=== PATIENT | female | born 1990 | race Hispanic/Latino ===

== ENCOUNTER 2018-10-06 13:18 | Emergency (ER) | payer SELFPAY ==
--- NOTE | 2018-10-06 14:08 | EDPHYS ---
Physician Documentation [facility] Name: Suzanne Murguia Age: 28 yrs Sex: Female : 1990 Arrival Date: 10/06/2018 Time: 13:22 Bed 11 Private MD: ED Physician Shun Galvan HPI: 10/06 13:54 This 28 yrs old Female presents to ER via Ambulatory with complaints of Sore jr8 Throat. 13:54 The patient presents with sore throat. The patient describes throat pain as raw. Onset: jr8 The symptoms/episode began/occurred gradually, 3 day(s) ago. Severity of symptoms: At their worst the symptoms were mild, in the emergency department the symptoms are unchanged. Modifying factors: The symptoms are alleviated by nothing, the symptoms are aggravated by swallowing. Associated signs and symptoms: The patient has no apparent associated signs or symptoms. The patient has not experienced similar symptoms in the past. The patient has not recently seen a physician. Patient stated that she has had sore throat on right side of mouth for past three days. Sees redness to right side and noted painful lesion to right inner gum line. Stated that she also feels sore node to right neck region. Denies fevers or any other symptoms . 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 - Social history:: Smoking status: Patient/guardian denies using tobacco. - Ebola Screening: : Patient denies exposure to infectious person Patient denies travel to an Ebola-affected area in the 21 days before illness onset. ROS: 13:54 Eyes: Negative for injury, pain, redness, and discharge, Cardiovascular: Negative for jr8 chest pain, palpitations, and edema, Respiratory: Negative for shortness of breath, cough, wheezing, and pleuritic chest pain, Abdomen/GI: Negative for abdominal pain, nausea, vomiting, diarrhea, and constipation, Back: Negative for injury and pain, MS/Extremity: Negative for injury and deformity, Skin: Negative for injury, rash, and discoloration, Neuro: Negative for headache, weakness, numbness, tingling, and seizure. 13:54 ENT: Positive for Gum pain sore throat, Negative for drainage from ear(s), ear pain, nasal discharge, rhinorrhea, sinus congestion, sinus pain, difficulty swallowing, difficulty handling secretions, hoarseness. 13:54 Neck: Positive for swollen nodes, Negative for pain with movement, pain at rest, stiffness, tenderness, bony tenderness. Exam: 13:54 Constitutional: This is a well developed, well nourished patient who is awake, alert, jr8 and in no acute distress. Eyes: Pupils equal round and reactive to light, extra-ocular motions intact. Lids and lashes normal. Conjunctiva and sclera are non-icteric and not injected. Cornea within normal limits. Periorbital areas with no swelling, redness, or edema. Cardiovascular: Regular rate and rhythm with a normal S1 and S2. No gallops, murmurs, or rubs. Normal PMI, no JVD. No pulse deficits. Respiratory: Lungs have equal breath sounds bilaterally, clear to auscultation and percussion. No rales, rhonchi or wheezes noted. No increased work of breathing, no retractions or nasal flaring. Abdomen/GI: Soft, non-tender, with normal bowel sounds. No distension or tympany. No guarding or rebound. No evidence of tenderness throughout. Back: No spinal tenderness. No costovertebral tenderness. Full range of motion. Skin: Warm, dry with normal turgor. Normal color with no rashes, no lesions, and no evidence of cellulitis. MS/ Extremity: Pulses equal, no cyanosis. Neurovascular intact. Full, normal range of motion. Neuro: Awake and alert, GCS 15, oriented to person, place, time, and situation. Cranial nerves II-XII grossly intact. Motor strength 5/5 in all extremities. Sensory grossly intact. Cerebellar exam normal. Normal gait. 13:54 ENT: Exam is negative for earache, ear discharge, TM abnormalities, nasal discharge, Mouth: Lips: moist, Oral mucosa: pink and intact, moist, noted to have obvious stomatitis, on the gum line behind lower right first bicuspid, small ulcerations noted to right tonsillar fold , Posterior pharynx: Airway: patent, Tonsils: with exudate, right side, Uvula: midline, non-edematous, no erythema, swelling, is not appreciated, erythema, is not appreciated. 13:54 Neck: External neck: is normal, C-spine: appears grossly normal, Thyroid: appears normal, Trachea: is midline with no obvious abnormalities, ROM/movement: is normal, Lymph nodes: lymphadenopathy is appreciated, anterior cervical nodes. Vital Signs: 13:24 BP 120 / 79; Pulse 79; Resp 15; Temp 97.8(TE); Pulse Ox 99% on R/A; Weight 51.26 kg; ss Height 5 ft. 4 in. (162.56 cm); Pain 5/10; 13:24 Body Mass Index 19.40 (51.26 kg, 162.56 cm) ss MDM: 13:32 Patient medically screened. jr8 13:54 Data reviewed: vital signs, nurses notes, lab test result(s). Data interpreted: Pulse jr8 oximetry: on room air is 99 %. Interpretation: normal. Counseling: I had a detailed discussion with the patient and/or guardian regarding: the historical points, exam findings, and any diagnostic results supporting the discharge/admit diagnosis, lab results, the need for outpatient follow up, a family practitioner, to return to the emergency department if symptoms worsen or persist or if there are any questions or concerns that arise at home. 13:54 ED course: Patient with stomatitis. Viral in nature. No strep. Discussed with patient jr8 that supportive treatment is only indicated at this point . 04 13:26 Order name: Strep ss 10/06 13:27 Order name: Group A Streptococcus Rapid Sc; Complete Time: 13:54 EDMS 10/06 13:50 Order name: Throat Culture EDMS Administered Medications: No medications were administered Disposition: 10/07 07:07 Co-signature as Attending Physician, Shun Galvan MD. rn Disposition: 10/06/18 14:08 Discharged to Home. Impression: Stomatitis and related lesions. - Condition is Stable. - Discharge Instructions: Stomatitis. - Family Work Release, Medication Reconciliation Form, Thank You Letter, Antibiotic Education, Prescription Opioid Use form. - Follow up: Private Physician; When: 2 - 3 days; Reason: Recheck today's complaints, Continuance of care, Re-evaluation by your physician. - Problem is new. - Symptoms have improved. Signatures: Dispatcher [employer] EDMO Galvan, ShunMD MD momo Shelby, RN RN ss Juni Roberto PA PA jr8 Corrections: (The following items were deleted from the chart) 10/06 14:25 14:08 10/06/2018 14:08 Discharged to Home. Impression: Stomatitis and related lesions. ss Condition is Stable. Forms are Medication Reconciliation Form, Thank You Letter, Antibiotic Education, Prescription Opioid Use. Follow up: Private Physician; When: 2 - 3 days; Reason: Recheck today's complaints, Continuance of care, Re-evaluation by your physician. Problem is new. Symptoms have improved. jr8
--- NOTE | 2018-10-06 14:08 | ER ---
Nurse's Notes [facility] Name: Suzanne Murguia Age: 28 yrs Sex: Female : 1990 Arrival Date: 10/06/2018 Time: 13:22 Bed 11 Private MD: Diagnosis: Stomatitis and related lesions Presentation: 10/06 13:25 Presenting complaint: Patient states: sore throat with white patches x 3 days. Denies ss fever. Transition of care: patient was not received from another setting of care. Onset of symptoms was October 03, 2018. Risk Assessment: Do you want to hurt yourself or someone else? Patient reports no desire to harm self or others. Initial Sepsis Screen: Does the patient meet any 2 criteria? No. Patient's initial sepsis screen is negative. Does the patient have a suspected source of infection? No. Patient's initial sepsis screen is negative. Care prior to arrival: None. 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 - Social history:: Smoking status: Patient/guardian denies using tobacco. - Ebola Screening: : Patient denies exposure to infectious person Patient denies travel to an Ebola-affected area in the 21 days before illness onset. Screenin:41 Abuse screen: Denies threats or abuse. Denies injuries from another. Nutritional ss screening: No deficits noted. Tuberculosis screening: No symptoms or risk factors identified. Never had TB. Fall Risk None identified. Assessment: 13:41 General: Appears in no apparent distress. comfortable, Behavior is calm, cooperative, ss Denies fever, feeling ill, fatigue, chills. Pain: Complains of pain in throat Pain currently is 5 out of 10 on a pain scale. Pain began 2-3 days ago. Is continuous. Neuro: Level of Consciousness is awake, alert, obeys commands, Oriented to person, place, time, situation. Cardiovascular: Capillary refill < 3 seconds is brisk in bilateral fingers. Respiratory: Airway is patent Respiratory effort is even, unlabored, Respiratory pattern is regular, symmetrical, Breath sounds are clear bilaterally. GI: Patient currently denies diarrhea, nausea, vomiting. : No signs and/or symptoms were reported regarding the genitourinary system. Denies burning with urination, urinary frequency. EENT: Nares are clear Oral mucosa is moist. Throat is clear. EENT: Throat is pink. Derm: Skin is intact, is healthy with good turgor, Skin is dry, Skin is pink, warm \T\ dry. normal. Musculoskeletal: Circulation, motion, and sensation intact. Range of motion: intact in all extremities, Swelling absent. Vital Signs: 13:24 BP 120 / 79; Pulse 79; Resp 15; Temp 97.8(TE); Pulse Ox 99% on R/A; Weight 51.26 kg; ss Height 5 ft. 4 in. (162.56 cm); Pain 5/10; 13:24 Body Mass Index 19.40 (51.26 kg, 162.56 cm) ED Course: 13:22 Patient arrived in ED. rg4 13:26 Triage completed. 13:32 Juni Roberto PA is PHCP. jr8 13:32 Shun Galvan MD is Attending Physician. jr8 13:36 Nichole Neil, THEO is Primary Nurse. iw 13:40 Strep Sent. ss 13:40 Arm band placed on. iw 13:41 Patient has correct armband on for positive identification. Bed in low position. Call ss light in reach. 14:25 No provider procedures requiring assistance completed. Patient did not have IV access ss during this emergency room visit. Administered Medications: No medications were administered Outcome: 14:08 Discharge ordered by . jr8 14:25 Discharged to home ambulatory, with family. ss 14:25 Condition: good 14:25 Discharge instructions given to patient, family, Instructed on discharge instructions, follow up and referral plans. medication usage, Demonstrated understanding of instructions, follow-up care. 14:25 Patient left the ED. ss Signatures: Nichole Neil, RN Davina Wright RN RN Juni Roberto PA PA jr8 Garcia, Rubi rg4
== END 2018-10-06 14:25 | disposition home or self-care (01) ==
LOC: ER 13:18
DX: K12.1 Other forms of stomatitis (principal)
CPT/HCPCS: 87070; 87081; 99283